=== PATIENT | male | born 2000 | race Two or more races ===

== ENCOUNTER 2022-04-24 15:10 | Emergency (ER) | payer SELFPAY ==
[~2022-04-24] VITALS: Ht 162.6 cm; Wt 63.5 kg
[2022-04-24] MEDS ORDERED: IBUPROFEN 600 MG TABLET PO ONE (16:00)
[2022-04-24] MEDS ORDERED: HYDROCODONE/APAP 5-325MG TABLET PO ONE (16:00)
[2022-04-24] MEDS ORDERED: HYDROCODONE/APAP 5-325MG TABLET ONE (16:12)
[2022-04-24] MEDS ORDERED: IBUPROFEN 600 MG TABLET ONE (16:12)
[2022-04-24] MEDS ORDERED: TRAM50TA2 PO (16:58)
[2022-04-24] MEDS ORDERED: IBUP-1955 PO (16:58)
--- NOTE | 2022-04-24 17:00 | NUR ---
Applied shoulder sling to LUE per md order.
--- NOTE | 2022-04-24 17:44 | NUR ---
Patient discharged to home in stable condition. Written and verbal after care instructions given. Patient verbalizes understanding of instructions. Stressed follow up or return to ER for worsening s/s.
[2022-04-24 17:46] VITALS: BP 118/60
== END 2022-04-24 17:47 | disposition home or self-care (01) ==
LOC: ER 15:10
DX: S43.005A Unspecified dislocation of left shoulder joint, initial encounter (principal); X50.0XXA Overexertion from strenuous movement or load, initial encounter; Y93.H9 Activity, other involving exterior property and land maintenance, building and construction; Y92.89 Other specified places as the place of occurrence of the external cause; Y99.0 Civilian activity done for income or pay
CPT/HCPCS: 73030; A4663